=== PATIENT | female | born 1960 | race Caucasian/White ===

== ENCOUNTER 2022-02-03 14:06 | Inpatient (IN) ==
[2022-02-03 16:14] LABS: Hematocrit 41 % (35-47); Hemoglobin 13.8 g/dL (12.0-16.0); Mean Corpuscular HGB Conc 34 g/dL (31-36); Mean Corpuscular Hemoglobin 37 pg (27-31); Mean Corpuscular Volume 109 fL (80-97); Mean Platelet Volume 7.1 fL (7.4-10.4); Platelet Count 181 10^3/uL (150-450); Red Blood Count 3.74 10^6 /uL (3.70-4.87); Red Cell Distribution Width 14 % (10-15); White Blood Count 12.3 10^3/uL (3.5-10.8)
[2022-02-03 16:15] LABS: ABS Neutrophils 9.6 10^3/ul (1.5-7.7)
[2022-02-03 16:23] LABS: Urine Appearance Cloudy; Urine Color Yellow; Urine pH 5.5 (5.0-9.0)
[2022-02-03 16:24] LABS: Urine Bilirubin 1+ (Small) (Negative); Urine Blood 3+ (Large) (Negative); Urine Glucose Negative (Negative); Urine Ketones Negative (Negative); Urine Nitrite Negative (Negative); Urine Protein 2+ (100 mg/dL) (Negative); Urine Urobilinogen 1.0 (Negative) (Negative)
[2022-02-03 16:33] LABS: Urine Bacteria 1+ (Absent); Urine Granular Casts Present (Absent); Urine Red Blood Cell 3+(>10/hpf) (Absent); Urine Squamous Epithelial Cell Present (Absent); Urine White Blood Cell 3+(>20/hpf) (Absent)
[2022-02-03 16:52] LABS: Albumin 2.4 g/dL (3.2-5.2); Albumin/Globulin Ratio 0.6 (1-3); C Reactive Protein 29.38 mg/L (<8.01); Calcium 7.6 mg/dL (8.6-10.3); Direct Bilirubin 2.3 mg/dL (0.03-0.18); Globulin 3.7 g/dL (2-4); Potassium 4.6 mmol/L (3.5-5.0); Total Bilirubin 5.2 mg/dL (0.2-1.0); Total Protein 6.1 g/dL (6.4-8.9); eGFR CKD-EPI 38.8 (>60)
[2022-02-03 17:14] LABS: ABS Lymphocytes 0.9 10^3/ul (1.0-4.8); ABS Monocytes 1.8 10^3/ul (0-0.8); Burr Cells 2+; Eosinophil % 0.2 %; Macrocytosis 1+
[2022-02-03 19:39] LABS: INR 2.06 (0.89-1.11)
[2022-02-03] MEDS ORDERED: Ondansetron 4 mg VIAL 2 MG/ML 2 ml VIAL IV PRN (21:09)
[2022-02-03 22:32] LABS: Ferritin 1085.4 ng/mL (11-307)
[2022-02-03 22:40] LABS: Hepatitis B Surface Antigen Nonreactive (Nonreactive)
[2022-02-03 22:58] LABS: Hepatitis B Surface Ab Not Immune (Immune); Hepatitis C Antibody Negative (Negative)
[2022-02-03 23:59] LABS: Osmolality Serum 274 mOsm/kg (275-295)
[2022-02-04 04:18] LABS: Urine Creatinine Concentration 259.58 mg/dL; Urine Sodium Concentration < 18 mmol/L
[2022-02-04 04:52] LABS: Urine Osmo 485 mOsm/kg (150-1150)
[2022-02-04 06:16] LABS: Albumin 2.2 g/dL (3.2-5.2); Albumin/Globulin Ratio 0.7 (1-3); Calcium 7.5 mg/dL (8.6-10.3); Direct Bilirubin 2.5 mg/dL (0.03-0.18); Globulin 3.3 g/dL (2-4); Indirect Bilirubin 2.7 mg/dL (0.3-1.0); Potassium 4.8 mmol/L (3.5-5.0); Total Bilirubin 5.2 mg/dL (0.2-1.0); Total Protein 5.5 g/dL (6.4-8.9); eGFR CKD-EPI 30.4 (>60)
[2022-02-04 06:31] LABS: INR 2.19 (0.89-1.11)
[2022-02-04 07:01] LABS: Hematocrit 37 % (35-47); Hemoglobin 13.5 g/dL (12.0-16.0); Mean Corpuscular HGB Conc 36 g/dL (31-36); Mean Corpuscular Hemoglobin 39 pg (27-31); Mean Corpuscular Volume 108 fL (80-97); Red Blood Count 3.43 10^6 /uL (3.70-4.87); Red Cell Distribution Width 14 % (10-15)
[2022-02-04 07:49] LABS: ABS Lymphocytes 0.9 10^3/ul (1.0-4.8); ABS Neutrophils 10.9 10^3/ul (1.5-7.7); Eosinophil % 0.2 %; Lymphocyte % 6.7 %; Mean Platelet Volume 7.4 fL (7.4-10.4); Platelet Count 176 10^3/uL (150-450)
[2022-02-04] MEDS ORDERED: cefTRIAXone 1 gm/50 mL D5W 1 GM/50 ML BAG IV ONE (09:45)
[2022-02-04] MEDS ORDERED: Sodium Bicarb 8.4% Vial 50 ML 150 MEQ in D5W 1000 ml BAG 850 ML IV SCH (10:00)
[2022-02-04] MEDS ORDERED: Albuterol HFA INHALER 8 gm MDI INH SCH (15:00)
[2022-02-04] MEDS ORDERED: Sodium Bicarb 650 mg (ANTACID) TAB PO SCH ×2 (16:30)
[2022-02-04] MEDS: Sodium Citrate/Citric Acid LIQ 15 ML UDC PO SCH ×2 (17:06→21:30)
[2022-02-04 17:15] LABS: Calcium 7.3 mg/dL (8.6-10.3); Potassium 4.9 mmol/L (3.5-5.0); eGFR CKD-EPI 25.3 (>60)
[2022-02-04] MEDS: Mometasone 220 MCG MDI INH SCH (19:42)
[2022-02-04] MEDS ORDERED: Albumin Human 25% 25 GM/100 ML BTL IV SCH (21:00)
[2022-02-04] MEDS: Fluticasone NASAL SPRAY 50MCG 16 gm SPRAY BTL BOTH NARES SCH ×2 (21:27→21:30)
[2022-02-05 05:41] LABS: ALT 74 U/L (7-52); AST 124 U/L (13-39); Albumin 2.3 g/dL (3.2-5.2); Albumin/Globulin Ratio 0.8 (1-3); Alkaline Phosphatase 286 U/L (35-149); Anion Gap 8 mmol/L (2-11); Blood Urea Nitrogen 63 mg/dL (6-24); CO2 Carbon Dioxide 15 mmol/L (22-32); Calcium 7.2 mg/dL (8.6-10.3); Chloride 98 mmol/L (101-111); Globulin 2.9 g/dL (2-4); Glucose 113 mg/dL (70-100); Magnesium 2.4 mg/dL (1.9-2.7); Potassium 4.3 mmol/L (3.5-5.0); Sodium 121 mmol/L (135-145); Total Protein 5.2 g/dL (6.4-8.9); eGFR CKD-EPI 23.8 (>60)
[2022-02-05 05:52] LABS: Hematocrit 36 % (35-47); Hemoglobin 12.9 g/dL (12.0-16.0); Mean Corpuscular HGB Conc 36 g/dL (31-36); Mean Corpuscular Hemoglobin 39 pg (27-31); Mean Corpuscular Volume 109 fL (80-97); Red Blood Count 3.28 10^6 /uL (3.70-4.87); Red Cell Distribution Width 14 % (10-15); White Blood Count 13.9 10^3/uL (3.5-10.8)
[2022-02-05 05:53] LABS: ABS Basophils 0.1 10^3/ul (0-0.2); ABS Eosinophils 0.1 10^3/ul (0-0.6); ABS Lymphocytes 1.8 10^3/ul (1.0-4.8); ABS Monocytes 2.6 10^3/ul (0-0.8); ABS Neutrophils 9.3 10^3/ul (1.5-7.7); Eosinophil % 0.8 %; Lymphocyte % 12.8 %; Nucleated Red Blood Cells % 0.1
[2022-02-05] MEDS: Fluticasone NASAL SPRAY 50MCG 16 gm SPRAY BTL BOTH NARES SCH ×2 (08:18→21:05)
[2022-02-05] MEDS: Sodium Citrate/Citric Acid LIQ 15 ML UDC PO SCH ×3 (08:18→21:05)
[2022-02-05 08:29] LABS: Folate 13.69 ng/mL (5.90-24.80); Vitamin B12 > 1450 pg/mL (180-914)
[2022-02-05] MEDS ORDERED: ALBUMIN HUMAN 25% IV ONE ×2 (09:00)
[2022-02-05 09:13] LABS: INR 2.18 (0.89-1.11)
[2022-02-05 09:43] LABS: Mean Platelet Volume 7.3 fL (7.4-10.4); Platelet Count 141 10^3/uL (150-450)
[2022-02-05 09:51] LABS: TSH Ultra Thyroid Stim Horm 0.03 mcIU/mL (0.34-5.60)
[2022-02-05] MEDS: cefTRIAXone 1 gm/50 mL D5W 1 GM/50 ML BAG IV SCH (11:58)
[2022-02-05 15:06] LABS: Free T4 2.76 ng/dL (0.61-1.12)
[2022-02-05 15:21] LABS: Urine Chloride Concentration < 22 mmol/L; Urine Potassium Concentration 37.9 mmol/L; Urine Sodium Concentration < 18 mmol/L
[2022-02-05] MEDS: Mometasone 220 MCG MDI INH SCH (20:20)
[2022-02-05] MEDS: Albuterol HFA INHALER 8 gm MDI INH PRN (21:48)
[2022-02-06 06:01] LABS: INR 2.56 (0.89-1.11)
[2022-02-06 06:10] LABS: ABS Eosinophils 0.2 10^3/ul (0-0.6); ABS Lymphocytes 1.3 10^3/ul (1.0-4.8); ABS Monocytes 2.3 10^3/ul (0-0.8); ABS Neutrophils 9.8 10^3/ul (1.5-7.7); Eosinophil % 1.4 %; Lymphocyte % 9.3 %; Mean Platelet Volume 7.7 fL (7.4-10.4); Nucleated Red Blood Cells % 0.1; Platelet Count 119 10^3/uL (150-450); Red Cell Distribution Width 14 % (10-15)
[2022-02-06 06:15] LABS: Albumin 3.1 g/dL (3.2-5.2); Albumin/Globulin Ratio 1.1 (1-3); Calcium 7.9 mg/dL (8.6-10.3); Globulin 2.7 g/dL (2-4); Magnesium 2.6 mg/dL (1.9-2.7); Potassium 4.1 mmol/L (3.5-5.0); Total Protein 5.8 g/dL (6.4-8.9); eGFR CKD-EPI 37.1 (>60)
[2022-02-06 06:33] LABS: Thyroid Peroxidase Antibodies 0.59 IU/mL (<9)
[2022-02-06 06:34] LABS: Thyroid Peroxidase Antibodies 0.59 IU/mL (<9)
[2022-02-06 06:47] LABS: Thyroglobulin Antibody II 0.1 IU/mL (<4.0)
[2022-02-06 06:49] LABS: Hematocrit 33 % (35-47); Hemoglobin 11.8 g/dL (12.0-16.0); Mean Corpuscular HGB Conc 36 g/dL (31-36); Mean Corpuscular Hemoglobin 39 pg (27-31); Mean Corpuscular Volume 108 fL (80-97); Red Blood Count 3.04 10^6 /uL (3.70-4.87); White Blood Count 13.5 10^3/uL (3.5-10.8)
[2022-02-06] MEDS: Sodium Citrate/Citric Acid LIQ 15 ML UDC PO SCH ×3 (08:29→22:48)
[2022-02-06] MEDS: Fluticasone NASAL SPRAY 50MCG 16 gm SPRAY BTL BOTH NARES SCH ×2 (08:30→21:17)
[2022-02-06 08:35] LABS: Free T3 3.3 pg/mL (2.5-3.9)
[2022-02-06 09:59] LABS: Protime (Maddrey) 29.5 seconds (10.0-12.6)
[2022-02-06] MEDS: cefTRIAXone 1 gm/50 mL D5W 1 GM/50 ML BAG IV SCH (10:14)
[2022-02-06] MEDS: Albumin Human 25% 25 GM/100 ML BTL IV SCH ×2 (11:23→21:27)
[2022-02-06] MEDS ORDERED: Mometasone 220 MCG MDI INH SCH (19:00)
[2022-02-06] MEDS: Mometasone 220 MCG MDI INH SCH (19:10)
[2022-02-06 20:32] LABS: Tissue Transglutaminase IgA Ab 1.8 U/mL
[2022-02-06 21:44] LABS: Mitochondria M2 Antibody <0.1 U
[2022-02-06 23:06] LABS: Immunoglobulin A 810 mg/dL (61 - 356)
[2022-02-07 07:16] LABS: Albumin 3.6 g/dL (3.2-5.2); Albumin/Globulin Ratio 1.4 (1-3); Calcium 8.8 mg/dL (8.6-10.3); Globulin 2.5 g/dL (2-4); Magnesium 2.5 mg/dL (1.9-2.7); Potassium 4.3 mmol/L (3.5-5.0); Total Bilirubin 6.6 mg/dL (0.2-1.0); Total Protein 6.1 g/dL (6.4-8.9); eGFR CKD-EPI 68.6 (>60)
[2022-02-07] MEDS: Mometasone 220 MCG MDI INH SCH ×2 (07:35→20:05)
[2022-02-07] MEDS: Fluticasone NASAL SPRAY 50MCG 16 gm SPRAY BTL BOTH NARES SCH ×2 (08:24→22:03)
[2022-02-07] MEDS: Sodium Citrate/Citric Acid LIQ 15 ML UDC PO SCH ×3 (08:24→22:02)
[2022-02-07 08:39] LABS: ABS Basophils 0.2 10^3/ul (0-0.2); ABS Lymphocytes 0.3 10^3/ul (1.0-4.8); ABS Monocytes 0.7 10^3/ul (0-0.8); ABS Neutrophils 9.1 10^3/ul (1.5-7.7); Hematocrit 30 % (35-47); Hemoglobin 11.2 g/dL (12.0-16.0); Lymphocyte % 3.3 %; Mean Corpuscular HGB Conc 37 g/dL (31-36); Mean Corpuscular Hemoglobin 40 pg (27-31); Mean Corpuscular Volume 107 fL (80-97); Platelet Count Platelets clumped. 10^3/uL (150-450); Red Blood Count 2.85 10^6 /uL (3.70-4.87); Red Cell Distribution Width 14 % (10-15); White Blood Count 10.3 10^3/uL (3.5-10.8)
[2022-02-07] MEDS: cefTRIAXone 1 gm/50 mL D5W 1 GM/50 ML BAG IV SCH (11:18)
[2022-02-07] MEDS ORDERED: Dextran 70/Hypromellose Tears Eye Drops 15 ml BTL (for Artificials Tears) BOTH EYES PRN (12:42)
[2022-02-08] MEDS: Albuterol HFA INHALER 8 gm MDI INH PRN ×2 (03:37→19:23)
[2022-02-08 06:16] LABS: Hematocrit 29 % (35-47); Hemoglobin 10.6 g/dL (12.0-16.0); Mean Corpuscular HGB Conc 37 g/dL (31-36); Mean Corpuscular Hemoglobin 39 pg (27-31); Mean Corpuscular Volume 107 fL (80-97); Red Blood Count 2.71 10^6 /uL (3.70-4.87); Red Cell Distribution Width 14 % (10-15); White Blood Count 11.8 10^3/uL (3.5-10.8)
[2022-02-08 06:38] LABS: ABS Basophils 0.1 10^3/ul (0-0.2); ABS Lymphocytes 0.8 10^3/ul (1.0-4.8); ABS Monocytes 1.7 10^3/ul (0-0.8); ABS Neutrophils 9.2 10^3/ul (1.5-7.7); Eosinophil % 0.1 %; Lymphocyte % 6.9 %; Mean Platelet Volume 7.5 fL (7.4-10.4); Platelet Count 82 10^3/uL (150-450)
[2022-02-08 06:58] LABS: Albumin 3.3 g/dL (3.2-5.2); Albumin/Globulin Ratio 1.4 (1-3); Calcium 8.8 mg/dL (8.6-10.3); Globulin 2.4 g/dL (2-4); Potassium 4.2 mmol/L (3.5-5.0); Total Bilirubin 6.3 mg/dL (0.2-1.0); Total Protein 5.7 g/dL (6.4-8.9); eGFR CKD-EPI 96.1 (>60)
[2022-02-08] MEDS: Mometasone 220 MCG MDI INH SCH ×2 (07:02→19:23)
[2022-02-08] MEDS: Fluticasone NASAL SPRAY 50MCG 16 gm SPRAY BTL BOTH NARES SCH ×2 (08:59→20:56)
[2022-02-08] MEDS: Sodium Citrate/Citric Acid LIQ 15 ML UDC PO SCH (09:01)
[2022-02-08] MEDS: cefTRIAXone 1 gm/50 mL D5W 1 GM/50 ML BAG IV SCH (11:37)
[2022-02-09 05:20] LABS: Hematocrit 29 % (35-47); Hemoglobin 10.3 g/dL (12.0-16.0); Mean Corpuscular HGB Conc 36 g/dL (31-36); Mean Corpuscular Hemoglobin 39 pg (27-31); Mean Corpuscular Volume 107 fL (80-97); Red Blood Count 2.67 10^6 /uL (3.70-4.87); Red Cell Distribution Width 14 % (10-15)
[2022-02-09 05:21] LABS: ABS Monocytes 1.6 10^3/ul (0-0.8); ABS Neutrophils 11.3 10^3/ul (1.5-7.7); Eosinophil % 0.1 %; Lymphocyte % 7.5 %
[2022-02-09 05:52] LABS: Albumin 3.2 g/dL (3.2-5.2); Albumin/Globulin Ratio 1.2 (1-3); Calcium 8.6 mg/dL (8.6-10.3); Globulin 2.6 g/dL (2-4); Potassium 4.3 mmol/L (3.5-5.0); Total Bilirubin 7.1 mg/dL (0.2-1.0); Total Protein 5.8 g/dL (6.4-8.9); eGFR CKD-EPI 101.8 (>60)
[2022-02-09 06:36] LABS: Mean Platelet Volume 7.6 fL (7.4-10.4); Platelet Count 89 10^3/uL (150-450)
[2022-02-09] MEDS: Mometasone 220 MCG MDI INH SCH ×2 (07:31→19:37)
[2022-02-09] MEDS: Fluticasone NASAL SPRAY 50MCG 16 gm SPRAY BTL BOTH NARES SCH ×2 (09:26→20:56)
[2022-02-09 10:36] LABS: Direct Bilirubin 2.6 mg/dL (0.03-0.18)
[2022-02-09 12:07] LABS: INR 2.54 (0.89-1.11)
[2022-02-09] MEDS: cefTRIAXone 1 gm/50 mL D5W 1 GM/50 ML BAG IV SCH (12:15)
[2022-02-10 05:52] LABS: ABS Lymphocytes 1.6 10^3/ul (1.0-4.8); ABS Neutrophils 12.5 10^3/ul (1.5-7.7); Eosinophil % 0.1 %; Hematocrit 30 % (35-47); Hemoglobin 10.5 g/dL (12.0-16.0); Lymphocyte % 9.9 %; Mean Corpuscular HGB Conc 36 g/dL (31-36); Mean Corpuscular Hemoglobin 38 pg (27-31); Mean Corpuscular Volume 106 fL (80-97); Mean Platelet Volume 7.5 fL (7.4-10.4); Nucleated Red Blood Cells % 0.1; Platelet Count 112 10^3/uL (150-450); Red Blood Count 2.79 10^6 /uL (3.70-4.87); Red Cell Distribution Width 14 % (10-15); White Blood Count 16.1 10^3/uL (3.5-10.8)
[2022-02-10 06:09] LABS: Albumin 3.3 g/dL (3.2-5.2); Albumin/Globulin Ratio 1.3 (1-3); Calcium 8.8 mg/dL (8.6-10.3); Globulin 2.6 g/dL (2-4); Potassium 4.1 mmol/L (3.5-5.0); Total Bilirubin 6.6 mg/dL (0.2-1.0); Total Protein 5.9 g/dL (6.4-8.9); eGFR CKD-EPI 101.8 (>60)
[2022-02-10] MEDS: Fluticasone NASAL SPRAY 50MCG 16 gm SPRAY BTL BOTH NARES SCH (07:13)
[2022-02-10] MEDS: Mometasone 220 MCG MDI INH SCH (07:15)
[2022-02-10 11:20] VITALS: BP 134/65
== END 2022-02-10 14:00 | disposition home or self-care (01) ==
LOC: ED 14:06 → EDHOLD 21:09 → SUATTDRO 21:09 → MED 02-04 12:07
PROVIDERS: ADMIT Internal Medicine; ATTEND Internal Medicine

== ENCOUNTER 2022-04-07 10:02 | Observation (INO) ==
[2022-04-07 15:15] LABS: ABS Lymphocytes 1.4 10^3/ul (1.0-4.8); ABS Monocytes 1.2 10^3/ul (0-0.8); ABS Neutrophils 13.3 10^3/ul (1.5-7.7); Hematocrit 33 % (35-47); Hemoglobin 11.2 g/dL (12.0-16.0); Mean Corpuscular HGB Conc 34 g/dL (31-36); Mean Corpuscular Hemoglobin 37 pg (27-31); Mean Corpuscular Volume 109 fL (80-97); Platelet Count 193 10^3/uL (150-450); Red Blood Count 3.03 10^6 /uL (3.70-4.87); Red Cell Distribution Width 15 % (10-15)
[2022-04-07 15:22] LABS: INR 1.77 (0.89-1.11)
[2022-04-07 15:57] LABS: Albumin 2.7 g/dL (3.2-5.2); Albumin/Globulin Ratio 0.7 (1-3); Globulin 3.7 g/dL (2-4); Magnesium 1.3 mg/dL (1.9-2.7); Total Bilirubin 4.8 mg/dL (0.2-1.0); Total Protein 6.4 g/dL (6.4-8.9); eGFR CKD-EPI 80.8 (>60)
[2022-04-07] MEDS ORDERED: NS 0.9% 500 ml BAG 500 ML IV ONE (16:37)
[2022-04-07] MEDS ORDERED: Magnesium Sulf 4 GM/100 ML IV 4,000 MG/100 ML BAG IVPB ONE (17:07)
[2022-04-07] MEDS ORDERED: NS 0.9% 1000 ml BAG 1,000 ML IV SCH (18:15)
[2022-04-07] MEDS ORDERED: Albuterol HFA INHALER 8 gm MDI INH PRN (18:18)
[2022-04-07] MEDS: cefTRIAXone 1 gm/50 mL D5W 1 GM/50 ML BAG IV SCH (22:43)
[2022-04-07] MEDS: Lactulose 30 ml UDC PO SCH ×2 (22:53→23:59)
[2022-04-07] MEDS: Heparin 5000 UNITS/ML 1 mL VIAL SUBCUT SCH (22:53)
[2022-04-08] MEDS: Lactulose 30 ml UDC PO SCH ×2 (02:11→05:48)
[2022-04-08 04:52] LABS: Urine Appearance Clear; Urine Bilirubin Negative (Negative); Urine Blood 1+ (Negative); Urine Color Amber; Urine Glucose Negative (Negative); Urine Ketones Negative (Negative); Urine Nitrite Negative (Negative); Urine Protein Negative (Negative); Urine Specific Gravity 1.018 (1.002-1.030); Urine Urobilinogen Negative (Negative)
[2022-04-08 05:16] LABS: Urine Bacteria Absent (Absent); Urine Red Blood Cell 1+(3-5/hpf) (Absent); Urine Squamous Epithelial Cell Present (Absent); Urine White Blood Cell 1+(6-10/hpf) (Absent); Urine Yeast Present (Absent)
[2022-04-08] MEDS: Heparin 5000 UNITS/ML 1 mL VIAL SUBCUT SCH ×3 (05:48→21:53)
[2022-04-08 06:49] LABS: INR 1.66 (0.89-1.11)
[2022-04-08 06:52] LABS: ABS Basophils 0.1 10^3/ul (0-0.2); ABS Lymphocytes 2.5 10^3/ul (1.0-4.8); ABS Monocytes 1.2 10^3/ul (0-0.8); ABS Neutrophils 10.8 10^3/ul (1.5-7.7); Hematocrit 33 % (35-47); Hemoglobin 11.1 g/dL (12.0-16.0); Lymphocyte % 17.3 %; Mean Corpuscular HGB Conc 34 g/dL (31-36); Mean Corpuscular Hemoglobin 37 pg (27-31); Mean Corpuscular Volume 108 fL (80-97); Mean Platelet Volume 6.2 fL (7.4-10.4); Platelet Count 213 10^3/uL (150-450); Red Blood Count 3.01 10^6 /uL (3.70-4.87); Red Cell Distribution Width 15 % (10-15); White Blood Count 14.6 10^3/uL (3.5-10.8)
[2022-04-08 07:00] LABS: Potassium 3.8 mmol/L (3.5-5.0); eGFR CKD-EPI 87.2 (>60)
[2022-04-08] MEDS ORDERED: Fexofenadine 180 mg TAB (NF) PO ONE (16:11)
[2022-04-08] MEDS ORDERED: Albumin Human 25% 25 GM/100 ML BTL IV ONE (16:16)
[2022-04-08] MEDS: cefTRIAXone 1 gm/50 mL D5W 1 GM/50 ML BAG IV SCH (17:38)
[2022-04-09] MEDS: Heparin 5000 UNITS/ML 1 mL VIAL SUBCUT SCH ×2 (05:05→14:59)
[2022-04-09 06:34] LABS: Albumin 2.6 g/dL (3.2-5.2); Albumin/Globulin Ratio 0.9 (1-3); Calcium 8.3 mg/dL (8.6-10.3); Globulin 2.8 g/dL (2-4); Potassium 3.8 mmol/L (3.5-5.0); Total Bilirubin 3.8 mg/dL (0.2-1.0); Total Protein 5.4 g/dL (6.4-8.9); eGFR CKD-EPI 97.7 (>60)
[2022-04-09 08:28] LABS: Hematocrit 30 % (35-47); Hemoglobin 10.3 g/dL (12.0-16.0); Mean Corpuscular HGB Conc 34 g/dL (31-36); Mean Corpuscular Hemoglobin 37 pg (27-31); Mean Corpuscular Volume 107 fL (80-97); Red Blood Count 2.83 10^6 /uL (3.70-4.87); Red Cell Distribution Width 15 % (10-15); White Blood Count 12.7 10^3/uL (3.5-10.8)
[2022-04-09 09:23] LABS: ABS Basophils 0.1 10^3/ul (0-0.2); ABS Lymphocytes 2.3 10^3/ul (1.0-4.8); ABS Monocytes 1.1 10^3/ul (0-0.8); ABS Neutrophils 9.2 10^3/ul (1.5-7.7); Lymphocyte % 18.5 %; Mean Platelet Volume 6.1 fL (7.4-10.4); Platelet Count 176 10^3/uL (150-450)
[2022-04-09 12:17] LABS: TSH Ultra Thyroid Stim Horm 1.38 mcIU/mL (0.34-5.60)
[2022-04-09 12:21] LABS: Free T4 1.25 ng/dL (0.61-1.12)
[2022-04-09] MEDS: Albumin Human 25% 25 GM/100 ML BTL IV SCH ×2 (15:17→16:58)
[2022-04-09 15:44] VITALS: BP 122/50
== END 2022-04-09 23:04 | disposition home or self-care (01) ==
LOC: ED 10:02 → EDHOLD 10:02 → MEDTELE 23:18
PROVIDERS: ADMIT Internal Medicine; ATTEND Internal Medicine

== ENCOUNTER 2022-04-21 15:53 | Inpatient (IN) ==
[2022-04-21 17:11] LABS: ABS Eosinophils 0.2 10^3/ul (0-0.6); ABS Lymphocytes 1.4 10^3/ul (1.0-4.8); ABS Monocytes 1.3 10^3/ul (0-0.8); ABS Neutrophils 6.7 10^3/ul (1.5-7.7); Eosinophil % 2.1 %; Hematocrit 34 % (35-47); Hemoglobin 11.4 g/dL (12.0-16.0); Lymphocyte % 14.3 %; Mean Corpuscular HGB Conc 34 g/dL (31-36); Mean Corpuscular Hemoglobin 36 pg (27-31); Mean Corpuscular Volume 106 fL (80-97); Mean Platelet Volume 6.2 fL (7.4-10.4); Nucleated Red Blood Cells % 0.1; Platelet Count 170 10^3/uL (150-450); Red Blood Count 3.16 10^6 /uL (3.70-4.87); Red Cell Distribution Width 15 % (10-15); White Blood Count 9.7 10^3/uL (3.5-10.8)
[2022-04-21 17:19] LABS: Activated Partial Thrombo Time 37.3 seconds (26.0-38.0); INR 1.9 (0.89-1.11)
[2022-04-21 17:52] LABS: Albumin 3.3 g/dL (3.2-5.2); C Reactive Protein 9.35 mg/L (<8.01); Calcium 9.2 mg/dL (8.6-10.3); Globulin 3.3 g/dL (2-4); Potassium 3.7 mmol/L (3.5-5.0); Total Bilirubin 5.5 mg/dL (0.2-1.0); Total Protein 6.6 g/dL (6.4-8.9)
[2022-04-21] MEDS ORDERED: Iohexol 350 (CONTRAST) 500 ML MDV IV ONE (18:46)
[2022-04-21] MEDS ORDERED: Lactulose 30 ml UDC PO ONE (18:46)
[2022-04-21] MEDS ORDERED: Ondansetron ODT 4 mg TAB 4 MG TAB SL ONE (22:14)
[2022-04-21] MEDS ORDERED: Lactulose 300 ML for PR 200 GM/300 ML BTL PR PRN (22:24)
[2022-04-21] MEDS ORDERED: NIRMATRELVIR/RITONAVIR 1 PAK eGFR > 60 PO ONE (22:24)
[2022-04-21] MEDS ORDERED: NIRMATRELVIR/RITONAVIR 1 PAK eGFR > 60 PO SCH (23:00)
[2022-04-22 00:41] LABS: Urine Appearance Clear; Urine Bilirubin Negative (Negative); Urine Blood 1+ (Negative); Urine Color Yellow; Urine Glucose Negative (Negative); Urine Ketones Negative (Negative); Urine Nitrite Negative (Negative); Urine Protein Negative (Negative); Urine Specific Gravity 1.035 (1.002-1.030); Urine Urobilinogen Negative (Negative)
[2022-04-22 00:46] LABS: Urine Bacteria Absent (Absent); Urine Red Blood Cell 2+(6-10/hpf) (Absent); Urine Squamous Epithelial Cell Present (Absent); Urine White Blood Cell Trace(0-5/hpf) (Absent)
[2022-04-22 04:44] LABS: Hematocrit 31 % (35-47); Hemoglobin 10.4 g/dL (12.0-16.0); Mean Corpuscular HGB Conc 34 g/dL (31-36); Mean Corpuscular Hemoglobin 36 pg (27-31); Mean Corpuscular Volume 107 fL (80-97); Mean Platelet Volume 6.2 fL (7.4-10.4); Platelet Count 150 10^3/uL (150-450); Red Blood Count 2.87 10^6 /uL (3.70-4.87); Red Cell Distribution Width 15 % (10-15); White Blood Count 10.8 10^3/uL (3.5-10.8)
[2022-04-22 05:55] LABS: Albumin/Globulin Ratio 0.9 (1-3); Calcium 9.4 mg/dL (8.6-10.3); Globulin 3.3 g/dL (2-4); Magnesium 1.6 mg/dL (1.9-2.7); Potassium 4.1 mmol/L (3.5-5.0); Total Bilirubin 5.8 mg/dL (0.2-1.0); Total Protein 6.3 g/dL (6.4-8.9)
[2022-04-22] MEDS: Enoxaparin 40 MG/0.4 ML SYR SUBCUT SCH (06:08)
[2022-04-22] MEDS ORDERED: Magnesium Sulfate 2 gm BAG 2 GM/50 ML BAG IVPB ONE (07:19)
[2022-04-23] MEDS ORDERED: Lactulose 300 ML for PR 200 GM/300 ML BTL PR ONE (04:00)
[2022-04-23 06:38] LABS: ABS Basophils 0.1 10^3/ul (0-0.2); ABS Eosinophils 0.6 10^3/ul (0-0.6); ABS Lymphocytes 2.7 10^3/ul (1.0-4.8); ABS Monocytes 1.3 10^3/ul (0-0.8); ABS Neutrophils 6.5 10^3/ul (1.5-7.7); Eosinophil % 5.6 %; Hematocrit 30 % (35-47); Hemoglobin 10.6 g/dL (12.0-16.0); Lymphocyte % 24.1 %; Mean Corpuscular HGB Conc 35 g/dL (31-36); Mean Corpuscular Hemoglobin 37 pg (27-31); Mean Corpuscular Volume 105 fL (80-97); Mean Platelet Volume 6.4 fL (7.4-10.4); Platelet Count 173 10^3/uL (150-450); Red Blood Count 2.87 10^6 /uL (3.70-4.87); Red Cell Distribution Width 14 % (10-15); White Blood Count 11.3 10^3/uL (3.5-10.8)
[2022-04-23 06:57] LABS: Calcium 8.8 mg/dL (8.6-10.3); Magnesium 1.8 mg/dL (1.9-2.7); Potassium 3.6 mmol/L (3.5-5.0); eGFR CKD-EPI 96.1 (>60)
[2022-04-23] MEDS ORDERED: Magnesium Sulfate 2 gm BAG 2 GM/50 ML BAG IVPB ONE (07:24)
[2022-04-23] MEDS: KCL 20 MEQ/100 ML IVPREMIX 20 MEQ/100 ML BAG IV SCH ×2 (08:38→11:29)
[2022-04-23] MEDS ORDERED: Influenza vaccine *QUAD* *2022-23* 0.5 ML SYRINGE IM ONE (09:00)
[2022-04-23] MEDS: Enoxaparin 40 MG/0.4 ML SYR SUBCUT SCH (10:09)
[2022-04-23] MEDS: Lactulose 30 ml UDC PO SCH ×2 (11:28→15:13)
[2022-04-23 14:51] VITALS: BP 121/75
== END 2022-04-23 15:45 | disposition home or self-care (01) ==
LOC: ED 15:53 → EDHOLD 22:03 → SUATTDRO 22:03 → MED 04-22 05:18
PROVIDERS: ADMIT Internal Medicine; ATTEND Hospitalist